=== PATIENT | female | born 1970 | race African-American/Black ===

== ENCOUNTER 2024-03-28 09:35 | Emergency (ER) | payer OTHER ==
[2024-03-28 09:43] VITALS: BP 116/77; PULSE 87; RESP 16; TEMP 97.8; BMI 32.1
[2024-03-28 10:23] LABS: HEMATOCRIT 42.1 % (32.4-45.2); HEMOGLOBIN 13.4 G/dL (10.7-15.3); MCH 26.2 pg (25.7-33.7); MCHC 31.8 g/dl (32.0-36.0); MEAN CELL VOLUME 82.3 fl (80-96); MEAN PLT VOLUME 9.4 fl (7.5-11.1); PLATELET COUNT 219.2 10^3/uL (134-434); RBC 5.11 10^6/uL (3.60-5.2); RDW 14.8 % (11.6-15.6)
[2024-03-28 10:28] LABS: HCG,QUALITATIVE URINE Negative
[2024-03-28 10:46] LABS: ALBUMIN 4.4 g/dl (3.4-5.0); ALK PHOS 52 U/L (45-117); ANION GAP 8 mmol/L (4-13); BILIRUBIN,TOTAL 0.4 mg/dl (0.2-1); CHLORIDE 102 mmol/L (98-107); CO2 28 mmol/L (21-32); CREATININE 0.9 mg/dl (0.6-1.3); GLUCOSE,RANDOM 97 mg/dl (74-106); POTASSIUM 3.6 mmol/L (3.5-5.1); SGOT/AST 24 U/L (15-37); SGPT/ALT 23 U/L (7-52); SODIUM 138 mmol/L (136-145); TOT PROT 7.4 g/dl (6.4-8.2)
[2024-03-28 10:58] LABS: PLATELET ESTIMATE ADEQUATE
== END 2024-03-28 13:45 | disposition home or self-care (01) ==
LOC: FER 09:35
DX: R10.31 Right lower quadrant pain (principal); D21.9 Benign neoplasm of connective and other soft tissue, unspecified; M54.9 Dorsalgia, unspecified
CPT/HCPCS: 36415; 74177-TC; 80053; 81003; 81015; 83690; 84703; 85027; 99285-25; Q9967